=== PATIENT | female | born 1990 | race Caucasian/White ===

== ENCOUNTER 2019-08-18 19:27 | Inpatient (IN) | payer OTHER ==
[~2019-08-18] VITALS: Ht 170.2 cm; Wt 122.9 kg
== END 2019-08-21 15:41 | disposition home or self-care (01) | DRG 788 ==
LOC: OBS/DEL 19:27 → O/R 08-19 08:12 → OB/GYN 08-19 08:12 → LDR 08-19 08:12 → OBS/DEL 08-19 08:12 → O/R 08-19 10:39 → OB/GYN 08-19 13:00
PROVIDERS: ADMIT Obstetrics & Gynecology
PROC: 4A033R1 Measurement of Arterial Saturation, Peripheral, Percutaneous Approach (ICD-10-PCS; 2019-08-19)
PROC: 4A1HXCZ Monitoring of Products of Conception, Cardiac Rate, External Approach (ICD-10-PCS; 2019-08-19)
PROC: 10D00Z1 Extraction of Products of Conception, Low, Open Approach (ICD-10-PCS; principal; 2019-08-19 10:15)
DX: O82 Encounter for cesarean delivery without indication (principal); Z22.330 Carrier of Group B streptococcus; Z3A.37 37 weeks gestation of pregnancy; Z37.0 Single live birth